=== PATIENT | female | born 1940 | race Caucasian/White ===

== ENCOUNTER → 2018-12-22 | Outpatient (CLI) | payer OTHER ==
[~2018-12-22] MED LIST: ASPIR 8181 MG PO; BACTRIM DS TAB1 EACH PO; CAL-LAC100 MG; NORVASC5 MG PO; PHENAZOPYRIDIN200 M2 PO; PRINIVIL10 MG PO; SIMVASTATIN40 MG PO
== END ==
LOC: M.CT 13:00
DX: J18.1 Lobar pneumonia, unspecified organism (principal); J43.2 Centrilobular emphysema; I25.10 Atherosclerotic heart disease of native coronary artery without angina pectoris; I70.0 Atherosclerosis of aorta; M51.35 Other intervertebral disc degeneration, thoracolumbar region; M41.85 Other forms of scoliosis, thoracolumbar region

== ENCOUNTER → 2019-02-24 | Outpatient (CLI) | payer OTHER | LOC: M.CT 10:39 | DX: I70.0 Atherosclerosis of aorta (principal); I25.10 Atherosclerotic heart disease of native coronary artery without angina pectoris; M41.86 Other forms of scoliosis, lumbar region; J18.9 Pneumonia, unspecified organism ==